=== PATIENT | male | born 1980 | race Caucasian/White ===

== ENCOUNTER → 2019-06-18 17:02 | Outpatient (CLI) | payer OTHER, SELFPAY ==
[2017-07-23 11:09] VITALS: BMI 32.3
[2019-06-18 17:23] LABS: Hematocrit 46.6 % (40-54); Hemoglobin 15.6 g/dL (13.0-16.5); Mean Corp Hgb Conc 33.5 g/dL (32-36); Mean Corpuscular Hgb 30.1 pg (27.0-32.0); Mean Corpuscular Volume 89.8 fL (80-94); Mean Platelet Vol. 9.7 fl (6.2-12.0); Platelet Count 242 K/mm3 (150-450); RBC Distribution Width CV 12.4 % (11.6-14.6); RBC Distribution Width SD 40.4 fl (35.1-43.9); Red Blood Count 5.19 M/mm3 (4.6-6.2); White Blood Count 8.5 K/mm3 (4.4-11.0)
[2019-06-18 17:47] LABS: ALB/GLOB Ratio 1.2 RATIO (0.9-2.4); AST(SGOT) 23 U/L (15-37); Alanine Aminotransfer ALT/SGPT 56 U/L (16-61); Albumin, Serum 4.1 g/dL (3.2-5.0); Alkaline Phosphatase 89 U/L (45-117); Anion Gap 5 (5-15); BUN 10 mg/dL (7-18); BUN/Creat Ratio 10.4 RATIO (10-20); Calcium,Total 9.1 mg/dL (8.5-10.1); Chloride 107 mmol/L (98-107); Creatinine, Serum 0.96 mg/dL (0.70-1.30); EST Glomerular Filtration Rate 93 mL/min (>60); Est Glom Filt Rate - Afr Amer 112 mL/min (>60); Globulin 3.5 g/dL (2.2-4.2); Glucose 100 mg/dL (74-106); Potassium 4.1 mmol/L (3.5-5.1); Protein, Total 7.6 g/dL (6.4-8.2); Sodium Level 139 mmol/L (136-145); Thyroid Stim Hormone (TSH) 1.39 uIU/mL (0.358-3.74)
== END ==
PROVIDERS: PCP Family Medicine; Referring Provider Student in an Organized Health Care Education/Training Program; Visit Provider Student in an Organized Health Care Education/Training Program
DX: R03.0 Elevated blood-pressure reading, without diagnosis of hypertension (principal); R23.2 Flushing; R51 Headache; R42 Dizziness and giddiness; Z72.0 Tobacco use
CPT/HCPCS: 36415; 80053; 84443; 85027

== ENCOUNTER → 2019-06-26 16:31 | Outpatient (CLI) | payer OTHER, SELFPAY | PROVIDERS: PCP Family Medicine; Referring Provider Student in an Organized Health Care Education/Training Program; Visit Provider Student in an Organized Health Care Education/Training Program | DX: R00.2 Palpitations (principal) | CPT/HCPCS: 93225; 93226 ==

== ENCOUNTER 2020-04-27 19:31 | Emergency (ER) | payer OTHER, SELFPAY ==
[2020-04-26 09:40] VITALS: BMI 37.0
[2020-04-27 19:31] VITALS: BP 157/98; BP 159/98; PULSE 104; PULSE 112; RESP 23; RESP 24; TEMP 37.5; O2SAT 96; O2SAT 97; BMI 37.1
--- NOTE | 2020-04-27 20:28 | RAD_ITS ---
STUDY: X-RAY CHEST REASON FOR EXAM: Male, 39 years old. INCREASED SOB,COUGH,ACHING TECHNIQUE: Single frontal view of the chest. COMPARISON: None. FINDINGS: Cardiac silhouette unremarkable. Pulmonary vascularity unremarkable. Aorta unremarkable. No focal airspace opacities. No pleural effusions. Upper abdomen unremarkable. Osseous structures intact. No pneumothorax. RAD/Chest 1 View (Portable) IMPRESSION: No acute cardiopulmonary process identified. Electronically Signed: Tenzin Flowers, at 21:27 EST Tel , Service support ,
--- NOTE | 2020-04-27 20:34 | ED.DCSUM_ITS ---
- ER Visit Summary Date of Service: 04/27/20 Chief Complaint: Cough History of Present Illness: The patient is a 39 M who presents with a cough that began yesterday. Patient states he is coughing up some brown sputum. Patient states he feels short of breath at times. Patient also admits to some lighthead edness. Patient states he went to an urgent care yesterday and was given a Z- Nikolas for bronchitis. Patient states he took the first 2 doses but has not noticed any improvement. Patient states nothing makes his breathing worse or makes it better. Patient admits to some occasional chest pain. Patient admits to some general myalgias as well. Patient admits to subjective fevers and chills. Physical Examination: Vital signs are stable except for a mild tachycardia of 112 and a mild tachypnea of 24. Patient is afebrile. Patient is in no acute distress. Oral mucosa is pink and moist. Neck is supple. Trachea is midline. There is no JVD noted. Heart was regular and tachycardic. Lungs are clear but diminished bilaterally. Abdomen is soft. Bowel sounds are normal. There is no tenderness. There is no rebound or guarding noted. Skin is warm dry. Cranial nerves II through XII are intact. There are no focal motor or sensory deficits noted. Extremities are intact. There is no calf tenderness or edema. Test Results: Portable 1 view chest x-ray was obtained. On my interpretation, lung mckeon are clear. There is normal cardiac silhouette. Bony thorax is normal. There is no acute process noted. Radiologist also interpreted the x- ray and agrees. CBC was normal. Basic metabolic profile was essentially within normal limits. Lactate was elevated at 2.2. Covid antigen test was positive. Influenza swab was negative. Emergency Department Course and Treatment: Patient was given a gram of Tylenol here. Patient was given a 500 cc bolus of normal saline. Lactate level was repeated. If this is normal patient will be able to be discharged. Patient understands and is agreeable with the plan. All questions were answered. Disposition: Care of the patient was turned over to the oncoming physician. Impression: 1. COVID-19 This note was generated with [employer] software. It may contain incorrect words, spelling, and punctuation that were not noted in review of the chart prior to signing ED Disposition - Plan for ED Patient: Disposition: Home or Assisted Living Diagnosis: COVID-19 Instructions: Coronavirus Disease 2019 (COVID-19): Overview, Coronavirus Disease 2019 (COVID-19): Caring for Yourself or Others Referrals: Augustin Hollingsworth MD [Primary Care Provider] - 5-7 Days
[2020-04-27] MEDS: Acetaminophen 500 MG Tablet 1000 MG PO (20:37)
[2020-04-27 20:39] VITALS: BP 150/102; PULSE 92; RESP 17; O2SAT 97
[2020-04-27 20:39] LABS: Absolute Lymphocyte Count 1.26 X10^3/uL (0.83-4.51); Absolute Neutrophil Count 2.6 X10^3/uL (2.0-7.7); Basophil# 0.05 X10^3/uL; Eosinophil# 0.03 X10^3/uL; Eosinophils% 0.6 % (0-5); Hematocrit 45.1 % (40-54); Hemoglobin 15.4 g/dL (13.0-16.5); Lymphocyte # 1.26 X10^3/ul (4.0); Lymphocyte % 26.3 % (19-41); Mean Corp Hgb Conc 34.1 g/dL (32-36); Mean Corpuscular Volume 90.9 fL (80-94); Mean Platelet Vol. 10.4 fl (6.2-12.0); Monocyte# 0.85 X10^3/uL; Monocyte% 17.7 % (0-10); NRBC Flagged by Analyzer 0 % (0-5); Neutrophil # 2.57 X10^3/uL (2.7-7.7); Neutrophil % 53.6 % (47-70); Platelet Count 207 K/mm3 (150-450); RBC Distribution Width CV 12.6 % (11.6-14.6); RBC Distribution Width SD 41.6 fl (35.1-43.9); Red Blood Count 4.96 M/mm3 (4.6-6.2); White Blood Count 4.8 K/mm3 (4.4-11.0)
[2020-04-27 20:53] LABS: ALB/GLOB Ratio 1.1 RATIO (0.9-2.4); AST(SGOT) 24 U/L (15-37); Alanine Aminotransfer ALT/SGPT 59 U/L (16-61); Albumin, Serum 3.8 g/dL (3.2-5.0); Alkaline Phosphatase 104 U/L (45-117); Anion Gap 8 (5-15); BUN 8 mg/dL (7-18); BUN/Creat Ratio 7.3 RATIO (10-20); Calcium,Total 8.4 mg/dL (8.5-10.1); Chloride 108 mmol/L (98-107); Creatinine, Serum 1.09 mg/dL (0.70-1.30); EST Glomerular Filtration Rate 80 mL/min (>60); Est Glom Filt Rate - Afr Amer 96 mL/min (>60); Estimated Creatinine Clearance 101.81 ml/min; Globulin 3.4 g/dL (2.2-4.2); Glucose 124 mg/dL (74-106); Potassium 3.5 mmol/L (3.5-5.1); Protein, Total 7.2 g/dL (6.4-8.2); Sodium Level 142 mmol/L (136-145)
[2020-04-27 21:09] LABS: Lactic Acid 2.2 mmol/L (0.4-1.9)
[2020-04-27 21:31] VITALS: BP 170/136; PULSE 96; RESP 15; TEMP 36.9; O2SAT 99
[2020-04-27 22:00] VITALS: BP 160/104; PULSE 87; RESP 16; TEMP 36.9; O2SAT 98
[2020-04-27 22:41] VITALS: BP 147/100; PULSE 91; RESP 14; O2SAT 97
[2020-04-27 23:44] LABS: Lactic Acid 0.7 mmol/L (0.4-1.9)
[2020-04-28] VITALS: BP 145/104; PULSE 86; RESP 18; O2SAT 94
[2020-04-28 00:22] VITALS: BP 145/104; PULSE 86; RESP 18; O2SAT 94
[2020-04-28 00:28] LABS: Reflex Lactate? Y
== END 2020-04-28 00:23 | disposition home or self-care (01) ==
PROVIDERS: Emergency Provider Emergency Medicine; PCP Family Medicine
DX: U07.1 COVID-19 (principal)
CPT/HCPCS: 71045; 80053; 83605; 85025; 87040; 87077; 87186; 87426; 87804; 99285; J7040; A4216

== ENCOUNTER 2020-09-01 09:13 | Emergency (ER) | payer OTHER, SELFPAY ==
[2020-09-01 09:15] VITALS: BP 139/90; PULSE 76; RESP 14; TEMP 36.7; O2SAT 98; BMI 36.7
--- NOTE | 2020-09-01 09:22 | EKG12_ITS ---
Test Reason : CP Blood Pressure : / mmHG Vent. Rate : 084 BPM Atrial Rate : 084 BPM P-R Int : 150 ms QRS Dur : 088 ms QT Int : 348 ms P-R-T Axes : 050 -25 065 degrees QTc Int : 411 ms Normal sinus rhythm Normal ECG Confirmed by LISA BADILLO, CHENCHO ([id number]), sound editor RERE CHAIREZ ([id number]) on 09/05/2020 9:36:07 AM Referred By: ARMANDO Confirmed By:KAMALA GONZALEZ MD
--- NOTE | 2020-09-01 09:23 | ED.VIS.GEN ---
History of Present Illness Chief Complaint: Chest Pain Informant: Patient, Family Narrative: 39-year-old male presents to the emergency department for the evaluation of right chest pain. He was at work attempting to poke a hose up when he got a sharp severe pain in the right anterior chest that radiated posteriorly. He states it is worse with a deep breath. He denies any typical DVT/PE risk factors. He states it has gotten better but is still present. He notes when it was severe he was short of breath. No sweating. He denies any known medical problems. Takes no prescriptions. Past Medical History - Allergies and Home Meds Allergies/Adverse Reactions: Allergies No Known Allergies Allergy (Verified 09/01/20 09:14) Primary Care Physician: Jorge Storm DO [Primary Care Provider] - Past Medical History: None Surgical History: noncontributory Lives: With Family Smoking Status: Former smoker Drugs: None Review of Systems General: Denies: Chills, Fever, Sweats Eyes: Denies: Visual changes - bilaterally, Diplopia ENT: Denies: Rhinorrhea, Sore throat Cardiovascular: Reports: Chest pain. Denies: Palpitations Respiratory: Denies: Dyspnea, Cough, Dyspnea on exertion Gastrointestinal: Denies: Abdominal pain, Nausea, Vomiting, Diarrhea, Melena, Hematochezia Genitourinary: Denies: Dysuria, Hematuria, Frequency Musculoskeletal: Denies: Back pain, Extremity Pain Skin: Denies: Rash, Wounds Neurological: Denies: Headache, Weakness, Numbness Physical Exam Vital Signs/Narrative: Vital Signs Temp Pulse Resp BP Pulse Ox 09/01/20 09:15 98.0 F 76 14 139/90 H 98 Inital Vital Signs reviewed: Yes General: Well nourished, Well developed, No Acute Distress Head: Normocephalic, Atraumatic Eyes: Perrl, EOMI ENT: Moist mucous membranes, No rhinorrhea Neck: Supple, Nontender Cardiovascular: Regular rate, Regular rhythm, No murmurs Respiratory: No distress, CTA bilaterally, Chest nontender Abdomen: Soft, Nontender, Nondistended, Normal bowel sounds Back: Nontender, Normal Inspection Extremities: Nontender, No edema Skin: Normal color, No rash Neurological: Alert, Oriented x3, Cranial nerves II-XII grossly intact, Normal Strength, Normal Sensation Psychological: Normal affect, Normal Mood Diagnostic/Tx/Re-eval Clinical Impression(s) from Imaging Studies Chest X-Ray 09/01/20 09:35 IMPRESSION: Normal x-ray examination of the chest. Electronically Signed: Meño Harrell MD at 10:22 EDT , Service support , Laboratory Last Values WBC 10.9 K/mm3 (4.4-11.0) 09/01/20 09:35 RBC 5.23 M/mm3 (4.6-6.2) 09/01/20 09:35 Hgb 15.9 g/dL (13.0-16.5) 09/01/20 09:35 Hct 47.5 % (40-54) 09/01/20 09:35 MCV 90.8 fL (80-94) 09/01/20 09:35 MCH 30.4 pg (27.0-32.0) 09/01/20 09:35 MCHC 33.5 g/dL (32-36) 09/01/20 09:35 RDW Std Deviation 43.5 fl (35.1-43.9) 09/01/20 09:35 RDW Coeff of Eh 13.0 % (11.6-14.6) 09/01/20 09:35 Plt Count 246 K/mm3 (150-450) 09/01/20 09:35 MPV 9.9 fl (6.2-12.0) 09/01/20 09:35 Immature Gran % (Auto) 0.500 % (0.0-0.9) 09/01/20 09:35 Neut % (Auto) 69.3 % (47-70) 09/01/20 09:35 Lymph % (Auto) 16.9 % (19-41) L 09/01/20 09:35 [place] % (Auto) 10.9 % (0-10) H 09/01/20 09:35 Eos % (Auto) 1.8 % (0-5) 09/01/20 09:35 Baso % (Auto) 0.6 % (0-1) 09/01/20 09:35 Absolute Neuts (auto) 7.5 X10^3/uL (2.0-7.7) 09/01/20 09:35 Absolute Lymphs (auto) 1.83 X10^3/uL (0.83-4.51) 09/01/20 09:35 Nucleated RBC % 0 % (0-5) 09/01/20 09:35 D-Dimer Quant (PE/DVT) <= 0.27 FEU/ug/m (0.27-0.49) 09/01/20 09:35 Sodium 137 mmol/L (136-145) 09/01/20 09:35 Potassium 4.1 mmol/L (3.5-5.1) 09/01/20 09:35 Chloride 106 mmol/L (98-107) 09/01/20 09:35 Carbon Dioxide 29.0 mmol/L (21.0-32.0) 09/01/20 09:35 Anion Gap 2 (5-15) L 09/01/20 09:35 BUN 9 mg/dL (7-18) 09/01/20 09:35 Creatinine 1.00 mg/dL (0.70-1.30) 09/01/20 09:35 Estim Creat Clear Calc 110.97 ml/min 09/01/20 09:35 Est GFR (MDRD) Af Amer 106 mL/min (>60) 09/01/20 09:35 Est GFR (MDRD) Non-Af 88 mL/min (>60) 09/01/20 09:35 BUN/Creatinine Ratio 9.0 RATIO (10-20) L 09/01/20 09:35 Glucose 90 mg/dL (74-106) 09/01/20 09:35 Calcium 8.8 mg/dL (8.5-10.1) 09/01/20 09:35 Total Bilirubin 1.00 mg/dL (0.20-1.00) 09/01/20 09:35 AST 15 U/L (15-37) 09/01/20 09:35 ALT 39 U/L (16-61) 09/01/20 09:35 Alkaline Phosphatase 110 U/L (45-117) 09/01/20 09:35 Troponin I < 0.015 ng/mL (<0.045) 09/01/20 09:35 Total Protein 7.6 g/dL (6.4-8.2) 09/01/20 09:35 Albumin 3.9 g/dL (3.2-5.0) 09/01/20 09:35 Globulin 3.7 g/dL (2.2-4.2) 09/01/20 09:35 Albumin/Globulin Ratio 1.1 RATIO (0.9-2.4) 09/01/20 09:35 - EKG Initial EKG Interpretation: Sinus Rhythm - EKG demonstrates a normal sinus rhythm at a rate of 79. No concerning features of ACS or ectopy noted. - Medical Decision Making D-dimer troponin negative. Chest x-ray on my interpretation shows no acute process. Specifically no pleural effusion infiltrate or pneumothorax. Normal mediastinal silhouette. His EKG is normal sinus at a rate of 79 with no concerning features. He has had no events on the monitor. Patient received Toradol and he states he is doing very well at the current time of reevaluation. At this point I believe this most likely to be musculoskeletal in nature. Will be discharged home with supportive care return if worsening or concerns ED Disposition - Plan for ED Patient: Disposition: Home or Assisted Living Diagnosis: Chest pain Instructions: ED Chest Pain, Uncertain Cause Referrals: Jorge Storm DO [Primary Care Provider] - Keep Clarice appointment
--- NOTE | 2020-09-01 09:24 | NURSING ---
NO OLD EKGS
[2020-09-01] MEDS: Ketorolac 30 MG/ML Syringe IV (09:32)
[2020-09-01 09:34] VITALS: BP 148/87; PULSE 89; RESP 17; O2SAT 99
--- NOTE | 2020-09-01 09:35 | RAD_ITS ---
STUDY: X-RAY CHEST REASON FOR EXAM: Male, 39 years old. Chest pain TECHNIQUE: Single AP portable view of the chest. COMPARISON: Comparison is made with prior study dated 04/27/2020. FINDINGS: EKG electrodes are seen. Hyperinflation. The lungs are clear. There is no demonstrated pleural abnormality. Normal size heart. Normal mediastinum and jose f. Normal visualized pulmonary arteries. Normal visualized aortic arch and descending thoracic aorta. Normal visualized thoracic spine. Normal visualized ribs, clavicles, and shoulders. There is no demonstrated abnormality of the visualized soft tissue structures of the upper abdomen. RAD/Chest 1 View (Portable) IMPRESSION: Normal x-ray examination of the chest. Electronically Signed: Meño Harrell MD at 10:22 EDT , Service support ,
[2020-09-01 09:45] LABS: Absolute Lymphocyte Count 1.83 X10^3/uL (0.83-4.51); Absolute Neutrophil Count 7.5 X10^3/uL (2.0-7.7); Basophil# 0.06 X10^3/uL; Basophil% 0.6 % (0-1); Eosinophils% 1.8 % (0-5); Hematocrit 47.5 % (40-54); Hemoglobin 15.9 g/dL (13.0-16.5); Lymphocyte # 1.83 X10^3/ul (0.83-4.51); Lymphocyte % 16.9 % (19-41); Mean Corp Hgb Conc 33.5 g/dL (32-36); Mean Corpuscular Hgb 30.4 pg (27.0-32.0); Mean Corpuscular Volume 90.8 fL (80-94); Mean Platelet Vol. 9.9 fl (6.2-12.0); Monocyte# 1.18 X10^3/uL; Monocyte% 10.9 % (0-10); NRBC Flagged by Analyzer 0 % (0-5); Neutrophil # 7.53 X10^3/uL (2.7-7.7); Neutrophil % 69.3 % (47-70); Platelet Count 246 K/mm3 (150-450); RBC Distribution Width SD 43.5 fl (35.1-43.9); Red Blood Count 5.23 M/mm3 (4.6-6.2); White Blood Count 10.9 K/mm3 (4.4-11.0)
[2020-09-01 10:03] LABS: ALB/GLOB Ratio 1.1 RATIO (0.9-2.4); AST(SGOT) 15 U/L (15-37); Alanine Aminotransfer ALT/SGPT 39 U/L (16-61); Albumin, Serum 3.9 g/dL (3.2-5.0); Alkaline Phosphatase 110 U/L (45-117); Anion Gap 2 (5-15); BUN 9 mg/dL (7-18); Calcium,Total 8.8 mg/dL (8.5-10.1); Chloride 106 mmol/L (98-107); EST Glomerular Filtration Rate 88 mL/min (>60); Est Glom Filt Rate - Afr Amer 106 mL/min (>60); Estimated Creatinine Clearance 110.97 ml/min; Globulin 3.7 g/dL (2.2-4.2); Glucose 90 mg/dL (74-106); Potassium 4.1 mmol/L (3.5-5.1); Protein, Total 7.6 g/dL (6.4-8.2); Sodium Level 137 mmol/L (136-145)
[2020-09-01 10:19] LABS: D-Dimer Quantitative (DVT/PE) <= 0.27 FEU/ug/m (0.27-0.49)
[2020-09-01 10:23] VITALS: BP 156/87; PULSE 64; O2SAT 98
[2020-09-01 10:48] VITALS: BP 129/72; PULSE 70; RESP 18; O2SAT 97
== END 2020-09-01 10:48 | disposition home or self-care (01) ==
PROVIDERS: Emergency Provider Emergency Medicine; PCP Student in an Organized Health Care Education/Training Program
DX: R07.9 Chest pain, unspecified (principal); R06.02 Shortness of breath; Z87.891 Personal history of nicotine dependence
CPT/HCPCS: 71045; 80053; 84484; 85025; 85379; 93005; 96374; 99284; A4216

== ENCOUNTER 2020-09-01 21:46 | Emergency (ER) | payer OTHER, SELFPAY ==
[2020-09-01 09:15] VITALS: BMI 36.7
[2020-09-01 21:47] VITALS: BP 137/87; PULSE 82; RESP 15; TEMP 36.2; O2SAT 97; BMI 36.5
--- NOTE | 2020-09-01 22:11 | EKG12_ITS ---
Test Reason : Blood Pressure : / mmHG Vent. Rate : 079 BPM Atrial Rate : 079 BPM P-R Int : 150 ms QRS Dur : 090 ms QT Int : 360 ms P-R-T Axes : 058 -24 055 degrees QTc Int : 412 ms Normal sinus rhythm Normal ECG Confirmed by LISA BADILLO, CHENCHO ([id number]), food expeditor RERE CHAIREZ ([id number]) on 09/02/2020 8:23:13 AM Referred By: RAMBO Confirmed By:KAMALA GONZALEZ MD
[2020-09-01 22:21] LABS: Absolute Lymphocyte Count 2.54 X10^3/uL (0.83-4.51); Absolute Neutrophil Count 5.8 X10^3/uL (2.0-7.7); Basophil# 0.07 X10^3/uL; Basophil% 0.7 % (0-1); Eosinophil# 0.34 X10^3/uL; Eosinophils% 3.4 % (0-5); Hematocrit 44.3 % (40-54); Hemoglobin 14.8 g/dL (13.0-16.5); Lymphocyte # 2.54 X10^3/ul (0.83-4.51); Lymphocyte % 25.1 % (19-41); Mean Corp Hgb Conc 33.4 g/dL (32-36); Mean Corpuscular Hgb 30.5 pg (27.0-32.0); Mean Corpuscular Volume 91.2 fL (80-94); Mean Platelet Vol. 9.8 fl (6.2-12.0); Monocyte# 1.35 X10^3/uL; Monocyte% 13.4 % (0-10); NRBC Flagged by Analyzer 0 % (0-5); Neutrophil # 5.76 X10^3/uL (2.7-7.7); Platelet Count 230 K/mm3 (150-450); RBC Distribution Width SD 43.5 fl (35.1-43.9); Red Blood Count 4.86 M/mm3 (4.6-6.2); White Blood Count 10.1 K/mm3 (4.4-11.0)
--- NOTE | 2020-09-01 22:30 | RAD_ITS ---
STUDY: X-RAY CHEST REASON FOR EXAM: Male, 39 years old. chest pain TECHNIQUE: Single AP portable view of the chest. COMPARISON: Same day, 9:31 AM. FINDINGS: There is a faint focal pulmonary opacity in the periphery of the lateral mid right lung. This was also present previously. Otherwise lungs are clear. No effusions. Normal size heart. Normal mediastinum and jose f. Normal visualized pulmonary arteries. Normal visualized aortic arch and descending thoracic aorta. Normal visualized thoracic spine. Normal visualized ribs, clavicles, and shoulders. There is no demonstrated abnormality of the visualized soft tissue structures of the upper abdomen. RAD/Chest 1 View (Portable) IMPRESSION: Focal pulmonary opacity in the mid lateral right lung. See separate report for CT of the chest performed the same day-which is a far better exam. Electronically Signed: Varghese Conteh MD at 23:24 EDT , Service support ,
[2020-09-01 22:37] LABS: Anion Gap 2 (5-15); BUN 14 mg/dL (7-18); BUN/Creat Ratio 14.1 RATIO (10-20); Calcium,Total 8.9 mg/dL (8.5-10.1); Chloride 106 mmol/L (98-107); Creatinine, Serum 0.99 mg/dL (0.70-1.30); EST Glomerular Filtration Rate 88 mL/min (>60); Est Glom Filt Rate - Afr Amer 107 mL/min (>60); Estimated Creatinine Clearance 112.09 ml/min; Glucose 115 mg/dL (74-106); Potassium 4.2 mmol/L (3.5-5.1); Sodium Level 137 mmol/L (136-145)
--- NOTE | 2020-09-01 22:43 | CT_ITS ---
STUDY: CTA CHEST REASON FOR EXAM: Male, 39 years old. chest pain RADIATION DOSAGE (If Supplied By Facility): CTDIvol = ( 12.60 ) mGy, DLP = ( 567.98 ) mGycm TECHNIQUE: The examination was performed with the intravenous administration of IV 100mL Isovue-370. Post-processing of the angiographic images was performed, with multiplanar reformation and 3D reconstruction. Individualized dose optimization techniques were used for this CT. COMPARISON: Chest x-rays of the same day. FINDINGS: Normal enhancement of the main pulmonary artery and right and left pulmonary arteries. Normal enhancement of the bilateral peripheral pulmonary arteries. There is no demonstrated pulmonary embolism. Normal thoracic aorta and visualized great vessels. There is no demonstrated aortic dissection. Normal heart and pericardium. Normal mediastinum. Normal hilar regions. Normal visualized trachea and bronchi. The lungs are hyper expanded, with flattening of the hemidiaphragms. There is focal pulmonary opacity in the anterior segment of the right middle lobe, adjacent to the minor fissure. Findings most consistent with atelectasis or infiltrate. Left lung is clear. There is trace right pleural effusion. Normal osseous structures. Normal visualized upper abdomen. CT/CTA Chest W/WO Contrast IMPRESSION: Normal CTA chest examination, without a demonstrated pulmonary embolism or arterial dissection. Probable pneumonia in the right upper lobe. Electronically Signed: Varghese Conteh MD at 23:57 EDT , Service support ,
[2020-09-01 22:49] VITALS: BP 139/93; PULSE 80; RESP 18; O2SAT 97
--- NOTE | 2020-09-01 22:51 | ED.VIS.GEN ---
History of Present Illness Chief Complaint: Chest Pain Informant: Patient Narrative: 39-year-old male with no significant past medical history but does not follow with a family physician presents with concern for chest pain. States it began early this morning. Describes it as right-sided and radiating across his chest. Radiates through into his back. Patient was seen this morning at this emergency department with a negative work-up. Patient and spouse concerned given continued pain and the fact that it is worsening in nature. Denies any shortness of breath, nausea, vomiting, diaphoresis. 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 Past Medical History - Allergies and Home Meds Allergies/Adverse Reactions: Allergies No Known Allergies Allergy (Verified 09/01/20 09:14) Primary Care Physician: Jorge Storm DO [Primary Care Provider] - Prior records reviewed: Yes Past Medical History: None Surgical History: noncontributory Lives: Spouse/ Significant Other Smoking Status: Former smoker Alcohol: None Drugs: None Review of Systems General: Denies: Chills, Fever, Sweats Eyes: Denies: Visual changes - bilaterally, Diplopia ENT: Denies: Rhinorrhea, Sore throat Cardiovascular: Reports: Chest pain. Denies: Palpitations Respiratory: Denies: Dyspnea, Cough, Dyspnea on exertion Gastrointestinal: Denies: Abdominal pain, Nausea, Vomiting, Diarrhea, Melena, Hematochezia Genitourinary: Denies: Dysuria, Hematuria, Frequency Musculoskeletal: Denies: Back pain, Extremity Pain Skin: Denies: Rash, Wounds Neurological: Denies: Headache, Weakness, Numbness Physical Exam Vital Signs/Narrative: Vital Signs Temp Pulse Resp BP Pulse Ox 09/01/20 22:49 80 18 139/93 H 97 09/01/20 21:47 97.2 F L 82 15 137/87 H 97 Inital Vital Signs reviewed: Yes General: Well nourished, Well developed, No Acute Distress Head: Normocephalic, Atraumatic Eyes: Perrl, EOMI ENT: Moist mucous membranes, No rhinorrhea Neck: Supple, Nontender Cardiovascular: Regular rate, Regular rhythm, No murmurs Respiratory: No distress, CTA bilaterally, Chest nontender Abdomen: Soft, Nontender, Nondistended, Normal bowel sounds Back: Nontender, Normal Inspection Extremities: Nontender, No edema Skin: Normal color, No rash Neurological: Alert, Oriented x3, Cranial nerves II-XII grossly intact, Normal Strength, Normal Sensation Psychological: Normal affect, Normal Mood Diagnostic/Tx/Re-eval Clinical Impression(s) from Imaging Studies Chest X-Ray 09/01/20 22:30 IMPRESSION: Focal pulmonary opacity in the mid lateral right lung. See separate report for CT of the chest performed the same day-which is a far better exam. Electronically Signed: Varghese Conteh MD at 23:24 EDT , Service support , Chest CTA 09/01/20 22:43 IMPRESSION: Normal CTA chest examination, without a demonstrated pulmonary embolism or arterial dissection. Probable pneumonia in the right upper lobe. Electronically Signed: Varghese Conteh MD at 23:57 EDT , Service support , Laboratory Data 09/01/20 09/01/20 22:13 22:13 WBC 10.1 RBC 4.86 Hgb 14.8 Hct 44.3 MCV 91.2 MCH 30.5 MCHC 33.4 RDW Std Deviation 43.5 RDW Coeff of Eh 13.0 Plt Count 230 MPV 9.8 Immature Gran % (Auto) 0.400 Neut % (Auto) 57.0 Lymph % (Auto) 25.1 [place] % (Auto) 13.4 H Eos % (Auto) 3.4 Baso % (Auto) 0.7 Absolute Neuts (auto) 5.8 Absolute Lymphs (auto) 2.54 Nucleated RBC % 0 Sodium 137 Potassium 4.2 Chloride 106 Carbon Dioxide 29.0 Anion Gap 2 L BUN 14 Creatinine 0.99 Estim Creat Clear Calc 112.09 Est GFR (MDRD) Af Amer 107 Est GFR (MDRD) Non-Af 88 BUN/Creatinine Ratio 14.1 Glucose 115 H Calcium 8.9 Troponin I < 0.015 - Rhythm Strip Rhythm Strip: Sinus Rhythm Rate: 84 Ectopy: None - EKG Initial EKG Interpretation: Sinus Rhythm - Sinus rhythm at 84 bpm. MI interval of 150 ms. QTC of 411 ms. No evidence of ST elevation or depression at this time. - Medical Decision Making Patient appears well and nontoxic. Vital signs within normal limits. No hypoxemia. Lab work within normal limits. Troponin negative. EKG nonischemic. CTA was done given the patient admitted seen this morning without definitive diagnosis. Patient has evidence of a right upper lobe pneumonia. Patient be treated with cefdinir and azithromycin. Advised to follow-up in the next few weeks for repeat chest x-ray or CT to ensure clearing. Patient asked to return for new or worsening symptoms. Stable at time of discharge. Impression: 1. Community-acquired pneumonia ED Disposition - Plan for ED Patient: Disposition: Home or Assisted Living Instructions: Pneumonia Prescriptions: Azithromycin 250 mg PO DAILY #4 tablet Prescription Printed Cefdinir 300 mg PO BID #14 capsule Prescription Printed Referrals: Jorge Storm DO [Primary Care Provider] - 2 Days Additional Instructions: Please follow up with PCP in 1-2 days for recheck. Repeat CT of the chest would be recommended in the next one month to ensure clearing of infiltrate.
[2020-09-01] MEDS: Ketorolac 15 MG/ML Vial IV (23:54)
[2020-09-02 00:05] VITALS: BP 150/86; PULSE 95; RESP 20; O2SAT 98
[2020-09-02] MEDS: Azithromycin 250 MG Tablet 500 MG PO (00:26)
[2020-09-02] MEDS: Cefdinir 300 MG Capsule PO (00:27)
== END 2020-09-02 00:31 | disposition home or self-care (01) ==
PROVIDERS: Emergency Provider Emergency Medicine; PCP Student in an Organized Health Care Education/Training Program
DX: J18.9 Pneumonia, unspecified organism (principal); Z87.891 Personal history of nicotine dependence
CPT/HCPCS: 71045; 71275; 80048; 84484; 85025; 93005; 96374; 99285; Q9967; A4216

== ENCOUNTER → 2020-09-07 16:05 | Outpatient (CLI) | payer OTHER, SELFPAY ==
[2020-09-01 09:15] VITALS: BMI 36.7
[2020-09-01 21:47] VITALS: BMI 36.5
--- NOTE | 2020-09-07 16:08 | US_ITS ---
STUDY: SUPERFICIAL ULTRASOUND - RIGHT CERVICAL REGION. REASON FOR EXAM: Male, 39 years old. NECK MASS R ANTERIOR SUPERIOR CERVICAL/PAIN TECHNIQUE: A superficial ultrasound was performed with real-time and static deng-scale imaging. COMPARISON: None. FINDINGS: The palpable abnormality on the left side of the upper cervical region corresponds to a 2 cm x 1.9 cm x 0.8 cm heterogeneous solid mass. This may represent an enlarged lymph node. A biopsy is recommended. In the midportion of the right parotid gland, there is a 1.2 cm x 1.1 cm x 0.6 cm heterogeneous nodular density. Incidental note is made of a 1.8 cm x 1.2 cm x 0.7 cm right submandibular benign-appearing lymph node. US/Head/Neck Soft Tissue IMPRESSION: The palpable abnormality corresponds to a 2 cm x 1.9 cm x 0.8 cm heterogeneous solid mass. A biopsy is recommended. Incidental note is made of a 1.2 cm x 1.1 cm x 0.6 cm heterogeneous hypoechoic nodule in the midportion of the right parotid gland. Electronically Signed: Meño Harrell MD at 8:55 EDT , Service support ,
== END ==
PROVIDERS: PCP Student in an Organized Health Care Education/Training Program; Referring Provider Student in an Organized Health Care Education/Training Program; Visit Provider Student in an Organized Health Care Education/Training Program
DX: R59.9 Enlarged lymph nodes, unspecified (principal); Z72.0 Tobacco use
CPT/HCPCS: 76536

== ENCOUNTER → 2020-09-23 16:31 | Outpatient (CLI) | payer OTHER, SELFPAY ==
[2020-09-01 21:47] VITALS: BMI 36.5
--- NOTE | 2020-09-23 16:40 | CT_ITS ---
STUDY: CT SOFT TISSUE NECK WITH CONTRAST REASON FOR EXAM: Male, 39 years old. NECK MASS RADIATION DOSAGE (If Supplied By Facility): CTDIvol = ( 19.04 ) mGy, DLP = ( 599.44 ) mGycm TECHNIQUE: The patient was scanned in a multi-detector CT scanner. High resolution transaxial imaging was performed following intravenous administration of IV 100mL Isovue-300. Sagittal and coronal images were reconstructed. Individualized dose optimization techniques were used for this CT. COMPARISON: None. FINDINGS: Normal bilateral parotid glands. Normal bilateral sealer sander spaces. Normal bilateral parapharyngeal spaces. Normal bilateral carotid spaces. Normal bilateral sublingual and submandibular glands and spaces. Normal visualized nasopharynx. Normal retropharyngeal space. Normal perivertebral space. Normal visualized bilateral faucial tonsils. The visualized tongue, tongue base and oropharynx are normal. The visualized cervical lymph nodes (levels I-) are within normal size limits, and maintain normal morphology. There is no demonstrated solid or cystic mass lesion. There is no abnormal contrast enhancement. Normal epiglottis, bilateral vallecula and hypopharynx. The pre-epiglottic and paraglottic adipose spaces are normal. Normal visualized bilateral piriform sinuses, aryepiglottic folds, vocal cords, and arytenoid-cricoid articulations. Normal subglottic trachea. Normal bilateral lobes of the thyroid gland. Normal visualized pulmonary apices. Normal visualized paranasal sinuses. Normal visualized cervical spine. CT/Soft Tissue Neck WITH Contrast IMPRESSION: Normal enhanced CT examination of the soft tissues of the neck. Electronically Signed: John Hernandez MD at 17:01 EDT Tel , Service support ,
[2020-09-23 17:02] LABS: Hematocrit 43.4 % (40-54); Hemoglobin 14.3 g/dL (13.0-16.5); Mean Corp Hgb Conc 32.9 g/dL (32-36); Mean Corpuscular Hgb 29.7 pg (27.0-32.0); Mean Platelet Vol. 9.6 fl (6.2-12.0); Platelet Count 253 K/mm3 (150-450); RBC Distribution Width CV 12.6 % (11.6-14.6); RBC Distribution Width SD 41.1 fl (35.1-43.9); Red Blood Count 4.82 M/mm3 (4.6-6.2); White Blood Count 8.8 K/mm3 (4.4-11.0)
== END ==
PROVIDERS: PCP Student in an Organized Health Care Education/Training Program; Referring Provider Otolaryngology; Visit Provider Otolaryngology
DX: R22.1 Localized swelling, mass and lump, neck (principal); K11.8 Other diseases of salivary glands
CPT/HCPCS: 36415; 70491; 85027; Q9967

== ENCOUNTER → 2024-12-30 | Outpatient (CLI) | payer OTHER, SELFPAY ==
[2024-12-30 16:53] LABS: Hematocrit 43.3 % (40-54); Hemoglobin 14.8 g/dL (13.0-16.5); Immature Granulocytes Count 0.040 X10^3/uL (0.0-0.0); Mean Corp Hgb Conc 34.2 g/dL (32-36); Mean Corpuscular Volume 91.0 fL (80-94); Mean Platelet Vol. 10.1 fl (6.2-12.0); NRBC Flagged by Analyzer 0 % (0-5); Platelet Count 258 K/mm3 (150-450); RBC Distribution Width CV 12.9 % (11.6-14.6); RBC Distribution Width SD 42.7 fl (35.1-43.9); Red Blood Count 4.76 M/mm3 (4.6-6.2); White Blood Count 9.0 K/mm3 (4.4-11.0)
[2024-12-30 17:21] LABS: AST(SGOT) 24 U/L (<=37); Alanine Aminotransfer ALT/SGPT 37 U/L (<=46); Albumin, Serum 4.3 g/dL (3.5-5.0); Alkaline Phosphatase 97 U/L (40-129); Anion Gap 12 (5-15); BUN 11 mg/dL (4-19); BUN/Creat Ratio 11.1 RATIO (10-20); Calcium,Total 9.3 mg/dL (7.6-11.0); Carbon Dioxide 24.4 mmol/L (21.0-32.0); Chloride 104 mmol/L (98-108); Cholesterol 144 mg/dL (<=200); Globulin 2.8 g/dL (2.2-4.2); Glucose 83 mg/dL (70-99); Low Density Lipoprotein Calc. 67 mg/dL; Potassium 3.8 mmol/L (3.3-5.1); Triglycerides 219 mg/dL; Very Low Density Lipoprotein 44 mg/dL (5-40); cholesterol:hdl ratio screen 4.34
[2024-12-30 18:18] LABS: Color, Urine Straw (Yellow); Glucose, Dipstick Normal (Normal); Ketone-Dipstick Negative (Negative); Leukocyte Esterase-Dipstick Negative /ul (Negative); Nitrite-Dipstick Negative (Negative); Occult Blood-Urine Negative /ul (Negative); Protein-Dipstick Negative (Negative); Specific Gravity, Urine 1.010 (1.002-1.030); Urine Bilirubin Dipstick Negative (Negative)
== END | disposition home or self-care (01) ==
DX: I10 Essential (primary) hypertension (principal); Z13.220 Encounter for screening for lipoid disorders; R35.89 Other polyuria
CPT/HCPCS: 36415; 80053; 80061; 81002; 84443; 85025